=== PATIENT | female | born 1960 | race Caucasian/White ===

== ENCOUNTER 2021-04-07 10:49 | Outpatient (REF) | payer OTHER, SELFPAY ==
--- NOTE | ~2021-04-07 | XR_ITS ---
EXAMINATION: KNEE X-RAY CLINICAL INFORMATION: Right knee pain COMPARISON: None TECHNIQUE: Standing AP view of both knees and lateral and sunrise view of the right knee FINDINGS: Right knee: Bone alignment is normal. No fracture or dislocation is seen. The joint spaces are normal. There is a small joint effusion. There are soft tissue varicosities. Standing AP view of the left knee is unremarkable. XR/XR knee RT 2V IMPRESSION: Right knee: Small joint effusion. Soft tissue varicosities.
--- NOTE | ~2021-04-07 | XR_ITS ---
EXAMINATION: KNEE X-RAY CLINICAL INFORMATION: Right knee pain COMPARISON: None TECHNIQUE: Standing AP view of both knees and lateral and sunrise view of the right knee FINDINGS: Right knee: Bone alignment is normal. No fracture or dislocation is seen. The joint spaces are normal. There is a small joint effusion. There are soft tissue varicosities. Standing AP view of the left knee is unremarkable. XR/XR knee standing BI IMPRESSION: Right knee: Small joint effusion. Soft tissue varicosities.
== END 2021-04-07 10:50 | disposition home or self-care (01) ==
LOC: HO.HOSX 10:49
PROVIDERS: PCP Internal Medicine; Visit Provider Physician Assistant
DX: M17.11 Unilateral primary osteoarthritis, right knee (principal)
CPT/HCPCS: 73560; 73565

== ENCOUNTER → 2021-09-01 11:26 | Outpatient (BNVA) | payer OTHER, SELFPAY | PROVIDERS: Visit Provider Physician Assistant | DX: M17.0 Bilateral primary osteoarthritis of knee (principal); R22.9 Localized swelling, mass and lump, unspecified | CPT/HCPCS: 20610; J1040 ==